=== PATIENT | male | born 1940 | race Caucasian/White ===

== ENCOUNTER 2019-09-03 19:40 | Inpatient (IN) | payer OTHER ==
[~2019-09-03] VITALS: Ht 177.8 cm; Wt 106.7 kg
[2019-09-03 19:20] VITALS: BP 124/66
--- NOTE | 2019-09-03 19:30 | NUR ---
Patient arrived at the end of day shift from [facility]. Patient interviewed by RN. Patient appears confused and is alert and oriented to person and knows whom the president is. Patient signed consents although the signatures are difficult to make out. Patient is pleasant and cooperative. Patient has a difficult time remembering. Patient states that he has been depressed of lately. Patient also states that he needs help with his memory. Patient denies hi/si. Patient states that he has suffered no abuse at home. Patient states that he is and that his luis is Restorationist. Patient states that it hurts/walker when he urinates. Patients urine is almost an orange color. Patient can ambulate on his own but his gait is unsteady and he stated that he has fell in the past but does not remember when. Patient meets criteria for a falls risk per falls score. Patient states that he has diabetes and htn. Patient also states that he had dentures but they broke and he has not had them fixed yet. This could affect dietary choices. Patients overall affect is blunted. Patient is medication adherent and takes medications whole with thin fluids. Patients assessment shows clear breath sounds diminished in the bases, bowel sounds hypoactive, and s1 s2 heard but heart beat is irregular. PMH shows afib and a pacemaker. We will continue to monitor per hospital protocol.
[2019-09-03] MEDS ORDERED: BUPROPION XL150 MG PO (19:58)
[2019-09-03] MEDS ORDERED: CIPRO500 M1 PO (19:59)
[2019-09-03] MEDS ORDERED: DIGOXIN125 MCG PO (20:00)
[2019-09-03] MEDS ORDERED: ARICEPT10 M1 PO (20:00)
[2019-09-03] MEDS ORDERED: LEXAPRO20 MG PO (20:01)
[2019-09-03] MEDS ORDERED: PROSCAR 5MG TABL5 M1 PO (20:01)
[2019-09-03] MEDS ORDERED: TOPROL XL100 MG PO (20:02)
[2019-09-03] MEDS ORDERED: FOLIC ACID1 MG PO (20:02)
[2019-09-03] MEDS ORDERED: PHENAZOPYRIDIN100 M1 PO (20:03)
[2019-09-03] MEDS ORDERED: OMEPRAZOLE40 MG PO (20:03)
[2019-09-03] MEDS ORDERED: XARELTO20 MG PO (20:04)
[2019-09-03] MEDS ORDERED: SPIRONOLACTONE50 MG PO (20:05)
[2019-09-03] MEDS ORDERED: FLOMAX0.4 MG PO (20:06)
[2019-09-04 06:38] VITALS: BP 105/60
[2019-09-04 08:00] VITALS: BP 105/60
--- NOTE | 2019-09-04 08:45 | NUR ---
Assumed care 0700. Waiting in dayroom for breakfast. Hands/arms bilateral with tremors. Said he has had them since grade school. Denies having a pacemaker. Oriented to name. Seen by KAMILLE Mccabe and Dr. Nielsen and [facility]. Denied c/o pain. Self feeding with tray set up-food cut up, etc.
--- NOTE | 2019-09-04 15:54 | EKG ---
[facility] [place] [address] ELECTROCARDIOGRAM REPORT Name: NAOMI URIOSTEGUI Room #: [facility] [place] ADM IN M.R.#: [id number] Admission: 09/03/19 Attend Phys: Antony Nielsen DO Discharge: Date of : 44 Report #: [id number] THIS REPORT FOR: cc: SOCORRO - Jesenia family physician/PCP SOCORRO - Jesenia family physician/PCP Chadwick Perez MD [facility] ~ THIS REPORT FOR: //name// [facility] Test Date: 2019-09-04 Test Time: 11:12:51 Pat Name: NOAMI URIOSTEGUI Department: Room: [facility] Gender: M Force Variation Equipment Tender: ANDREA : 1940 Requested By: Antony Nielsen Order Number: [id number] MD: Chadwick Perez Measurements Intervals [place] Rate: 128 P: [place]: QRS: -19 QRSD: 151 T: -88 QT: 318 QTc: 464 Interpretive Statements Atrial fibrillation Right bundle branch block Repol abnrm suggests ischemia, diffuse leads Baseline wander in lead(s) V2 No previous ECG available for comparison Electronically Signed On 09-04-2019 15:54:14 CDT by Chadwick Perez [email or web address] <ELECTRONICALLY SIGNED> By: Chadwick Perez MD, FAC 09/04/19 1554 1112 1112 Chadwick Perez MD, FAC /EPI
--- NOTE | 2019-09-04 16:24 | NUR ---
SW met with pt at length and discussed the d/c plans. Pt would like to live in an AL with memory care. He is not happy in his relationship. Pt stated that his sons could be helpful in decision making. Pt states he has the resources to live in an AL. Anika completed the intake assessment and TP. This included DR Nielsen in the meeting to discuss the concerns about going home.
--- NOTE | 2019-09-04 18:00 | NUR ---
Orthostatic BP's done by this nurse approximately 1130: lying 134/80, radial p=64, pulse ox p=72, O2=96%, sitting ME=221/80, radial p=60, pulse ox p=56, standing AN=269/50, pulse ox p=116, unable to get radial pulse or apical pulse. Note Dr. Nielsen also tried to get apical pulse with no success. Orthostatic VS from left arm reported to KAMILLE Mccabe who was to relay them to Dr. Phillips. Dr. Nielsen aware that VS given to KAMILLE Mccabe. Patient med compliant. Pt. has constant upper extremity tremors. He has been cooperative. At times he walks away from his walker. He had an EKG and spoke with the Trucking Contractor. Family called to get baseline of assessments with Dr. Nielsen to call them back. Urine is bright orange. He takes his pills whole 1-2 at a time. Denies SI/HI/AH/VH.
[2019-09-04 20:03] VITALS: BP 130/64
[2019-09-05 06:03] LABS: ABSOLUTE NEUTROPHILS 3.6 thou/uL (1.4-8.2); BASOPHILS 0.8 % (0.0-2.0); EOSINOPHILS 1.6 % (0.0-3.0); HEMATOCRIT 33.4 % (42.0-52.0); HEMOGLOBIN 11.3 gm/dL (14.0-18.0); LYMPHOCYTES 17.1 % (24.0-44.0); MCH 31.2 pg (26.0-34.0); MCHC 33.7 g/dL (28.0-37.0); MCV 92.5 fL (80.0-100.0); MONOCYTES 7.6 % (1.0-8.0); PLATELET COUNT 129 thou/uL (150-400); POLYS 72.9 % (36.0-66.0); RBC 3.61 mil/uL (4.50-6.00); RDW 17.1 % (10.5-14.5); WBC 4.9 thou/uL (4.0-11.0)
[2019-09-05 06:30] LABS: ALBUMIN 2.6 g/dL (3.4-5.0); CALCIUM 8.6 mg/dL (8.5-10.1); CREATININE 1.8 mg/dL (0.7-1.3); MAGNESIUM 1.5 mg/dL (1.8-2.4); POTASSIUM 4.3 mmol/L (3.5-5.1); TOTAL BILIRUBIN 0.9 mg/dL (0.2-1.0); TOTAL PROTEIN 5.8 g/dL (6.4-8.2)
[2019-09-05 07:35] VITALS: BP 100/60
--- NOTE | 2019-09-05 11:09 | NUR ---
pT WAS IN DAY ROOM WHEN I CAME ON DUTY THIS AM. PT.ATE MOST OF BREAKFAST THIS AM. MEDICATIONS WERE TAKES IN PUDDING WITH NO PROBLEMS. ON ASSESSMENT , LUNGS CLEAR X2, PEDAL PULSE EQUAL, BOWEL SOUNDS FAINT. PT OOK NAP AFTER AM GROUP MEETING. STAFF TO ENCOURAGE FLUIDS AND OBSERVE PT.
[2019-09-05 18:19] VITALS: BP 100/60
--- NOTE | 2019-09-05 19:24 | NUR ---
Care of patient assumed at 1915. Patient is layin gin bed. Calm and pleasant upon approach. States he stays in his room as much as possible due to the chaotic milieu increasinghis anxiety. A/O x 2. Denies pain. Denies SI/HI. Stated goal is to work on walking more. HS muffled with a gallop - A Fib audible. LS CTA but diminished. BS active x 4. Compliant with HS meds.
[2019-09-05 20:05] VITALS: BP 129/65
[2019-09-06 09:05] VITALS: BP 105/65
--- NOTE | 2019-09-06 16:05 | NUR ---
PATIENT PLEASANT AND ALERT TO CONVERSATION. FORGETFUL AND ADMITS TO IT. STRUGGLES TO COMPLETE THOUGHT PROCESSES WHEN TALKING AND BECOMES FRUSTRATED. PATIENT STATED HAD LONGCONVERSATION WITH AND IT WENT WELL. CLAIMS HAS BEEN FRICTION IN THERE RELATIONSHIP BUT HAVE AGREED TO ASSISTED LIVING NOW. PATIENT CALM AND COMPLIANT WITH MEDICATIONS. TALKED ABOUT HIS SONS AND ONE RESIDING IN [place]. VERY SOCIAL WITH STAFF AND PEERS. DENIES S/I OR H/I CLAIMS HAPPY HE HAVE RECONSILED WITH . EAGER TO MOVE INTO FACILITY WHERE HE HAS LESS RESPONSIBILITY. STATES HAS BECOME HARDER TO KEEP A HOUSE HE GREW OLDER. PATIENT MAKES NEEDS KNOWN - AMBULATES WITH WALKER - STATED HAD GOOD NIGHT SLEEP. SPENT ENTIRE DAY IN [place] - REFUSED AFTERNOON GROUP PARTICIPATION THOUGH.
--- NOTE | 2019-09-06 19:27 | NUR ---
Care of patient assumed at 1915. Patient is laying in bed resting. Calm and cooperative upon approach. Tremor still present BUE. A/O x 2. Reports feeling "good" today. States he is trying to stay positive about moving to assisted living. HS, LS, BS normal. Denies pain. Denies SI/HI. Compliant with HS meds. Is sleeping shortly after med pass.
[2019-09-06 19:45] VITALS: BP 141/83
[2019-09-07 06:47] LABS: ALBUMIN 2.5 g/dL (3.4-5.0); CALCIUM 8.5 mg/dL (8.5-10.1); CREATININE 1.5 mg/dL (0.7-1.3); POTASSIUM 4.3 mmol/L (3.5-5.1)
[2019-09-07 07:48] VITALS: BP 107/61
--- NOTE | 2019-09-07 08:33 | NUR ---
PT SITTING IN DINING ROOM. PT TOOK MEDS WITHOUT ANY ISSUES. PT DENIES ANY PAIN. PT UP WITH WALKER. HAS SLIGHT TREMORS TO HANDS. PT ABLE TO FEED SELF.
[2019-09-07 09:00] VITALS: BP 107/61
--- NOTE | 2019-09-07 16:10 | NUR ---
Pt was invited to Sw but refused because he wanted to sleep
--- NOTE | 2019-09-07 19:27 | NUR ---
Care of patient assumed at 1915. Patientis laying quietly in bed. Pleasant and cooperative. A/O x 2. Disoriented to time and place. Denies pain. Denies SI/HI. States he would like to speak with the doctor about discharge planning. After speaking with Dr Beltran, patient is bright and cheerful. Compliant with HS meds and retires to bed immediately after. Up to toilet several times through the night, ambulating the short distance without assistance.
[2019-09-07 19:43] VITALS: BP 141/85
[2019-09-08 08:00] VITALS: BP 94/67
[2019-09-08 08:37] VITALS: BP 94/67
--- NOTE | 2019-09-08 08:45 | NUR ---
PT ALERT AND FORGETFUL. PT DENIES ANY PAIN. PT USING WALKER TO AMBULATE. PT GAIT STEADY WITH WALKER. PT DENIES ANY BURNING WITH VOIDING. PT TAKING MEDS WITHOUT ANY ISSUES. DID CALL AND WONDER ABOUT IF HE NEEDS AL OR MEMORY CARE. SHE IS AFRAID WE WILL DISCHARGE HIM WITHOUT HIM BEING PLACED.
--- NOTE | 2019-09-08 15:15 | NUR ---
Anika faxedd the OA paperwork to [employer] [phone]. Confirmation recieved
--- NOTE | 2019-09-08 17:57 | NUR ---
PT HAS HAD A GOOD DAY TODAY. PT USING WALKER TO AMBULATE. PT SOMETIMES SETS WALKER ASIDE IN ROOM TO USE BATHROOM. PT NEEDS REMINDED TO WHERE HIS ROOM IS AT TIMES. PT TAKES MEDS WHOLE. PT DENIES ANY BURNING WHEN VOIDING. PT HAS ATTENDED GROUP TODAY.
[2019-09-08 20:11] VITALS: BP 128/94
--- NOTE | 2019-09-08 22:57 | NUR ---
Care assumed of patient at 1915: Patient seated on bed at start of shift. Patient ambulating without walker. Provided education and re-direction on using walker at all times when out of bed. Needed re-education several times this evening. Alert and oriented to person only. Pleasantly confused. Calm and cooperative. Patient polite, social, joking appropriately. Denies pain or discomfort. Denies SI/HI/AH/VH. Denies anxiety and depression. Patient took HS medication whole without difficulty. Declined HS snack. Provided supervision when using the bathroom. Patient smiling and interacting well with staff and peers. Patient did not fixate on discharge plan this evening. Goal directed stating "They are finding me a place to go to". Patient had difficulty falling to sleep this evening but was able to fall asleep recently and is resting quietly at this time.
[2019-09-09 07:34] VITALS: BP 137/79
--- NOTE | 2019-09-09 09:32 | NUR ---
Assumed care 0700. No offered complaints. Participated in AM Yoga group. Has hand and arm bilateral tremmors. Ate breakfast well-self feeding after tray was set up.
--- NOTE | 2019-09-09 18:13 | NUR ---
Does not remember what is told to him even one minute. Late in shift he inquired about the airplane and shopping in the area. Informed him when he would be discharged his family could take him shopping. Reoriented to being in the hospital. When in his room he cannot remember to use the call shaffer or even wait a few minutes for staff to return. He stands up. Pt. was showered and shaved though shaving was not a very good job due to the equipment available. He eats well, self feeds. Denies SI/HI, AH/VH though verse writer does not think he comprehends exactly what is being asked.
[2019-09-09 19:58] VITALS: BP 112/79
[2019-09-09 21:30] VITALS: BP 112/79
--- NOTE | 2019-09-10 00:53 | NUR ---
Assumed care of patient this pm shift. Patient is pleasantly confused, alert and oriented to self. Patients affect is blunted. Patient is medication adherent and takes pills whole with thin fluids. Patient uses a walker to ambulate and is considered a falls risk. Patient is wearing a yellow shirt and socks. Patients assessment shows no signs of acute distress. Patient denies pain. Patient denies hi/si. Patient breath sounds are clear, diminished in the bases, heart tones s1 s2 are present, and the heart rate is irregular. Patient has active bowel sounds and states that he is having regular bowel movements. Patient often needs direction to find his room. We will continue to monitor per hospital policy.
[2019-09-10 11:43] LABS: CALCIUM 8.8 mg/dL (8.5-10.1); CREATININE 1.7 mg/dL (0.7-1.3); POTASSIUM 4.4 mmol/L (3.5-5.1)
--- NOTE | 2019-09-10 13:02 | NUR ---
Alert and orientated to person, place but not to time, situation. Calm and cooperative, compliant with meds. Took whole with H2O. Denies SI/HI. Quiet most of the morning, participating in group and sitting with peers in day room. Denies SI/HI. Breath sounds clear t/o. Irregular HR auscultated. Color pink with brisk capillary refill and palpable pulses. +2 edema per lower extremities, dmitri hose placed. Independent with voiding. Active bowel sounds over large, soft, rounded abdomen. Eating meals independently. Dr. Benavides notified of HR, here examining pt. BMP drawn per order.
[2019-09-10 13:12] VITALS: BP 142/53
--- NOTE | 2019-09-10 14:37 | NUR ---
SANJUANA spoke with Ailin, Pt's , via phone call. Ailin stated she had spoken with [facility] and requested information be sent. She also asked for information to be sent to [facility] and [facility]. Ailin stated that they will be private pay. Ailin was confused if Pt needed AL or memory care. SANJUANA informed that the recommendation was assisted living with memory care. Sanjuana also informed Ailin that the Pt would like to return home however it has been explained to the Pt that would be a safety issue. Ailin agreed with this and stated she has told the Pt the same information. Sanjuana also set up a family meeting per Dr. Morris request for 09/11/2019 @ 2pm. SANJUANA sent referals to [facility], [facility] and [facility]. SANJUANA team will follow up.
[2019-09-10 19:50] VITALS: BP 139/90
--- NOTE | 2019-09-10 22:54 | NUR ---
Pt was in his room on his bed at time of assessment. Pt oriented to self. Knows he's in "[facility]" but unable to identify name of hospital. Pt had some tremors to upper extremities. Pt denies pain. Pt denies anxiety and/or depression. Pt denies SI/HI/AH/VH. Pt had edema to BLE. AZALEA hose in place to BLE at time of assessment. AZALEA hose was taken off prior to bed time. Pt took meds whole. Fall precaution in place. Pt is sleeping off and on so far. Will continue to monitor. Pt takes digoxin @ HS. No dig level obtained this hospital stay as baseline. Will mention during report in the morning.
[2019-09-11 07:41] VITALS: BP 109/59
--- NOTE | 2019-09-11 10:12 | NUR ---
Nutrition: Assessed for early weekend LOS. Here w/ worsening dementia, visual hallucinations, family unable to care for pt at home. SW now seeking placement into memory care. Family meeting planned for today. Pt A&O to self only, thus not seen for interview. EMR reviewed thoroughly. Pt eats meals independently and is showing excellent, stable appetite. Eats almost 100% of every single meal since admit; 99% meal average per the last 19 meals from 09/03 - 09/09. Noted to have 2+ edema to LE per nursing and dmitri renee placed 09/09. Also note pt on spironolactone diuretic. Has active bowel sounds and on scheduled bowel regimen w/ docusate Na. Also receives folic acid supplementation. Pt is low nutrition risk, no added nutrition interventions indicated.
[2019-09-11 13:46] VITALS: BP 109/59
--- NOTE | 2019-09-11 14:00 | NUR ---
PATIENT WAS IN DAYROOM SITTING WHEN CARE ASSUMED. PATIENT IS ALERT, AND ORIENTED X 1-2, ABLE TO VOICED NEED AT TIMES. PATIENT AMBULATES WITH ASSIST OF ROLLER WALKER, GAIT UNSTEADY, VISIBLE TREMORS NOTED TO [place] UPPER EXTREMITIES. DIGOXIN LEVEL COMPLETE, WITH RESULT OF 1.6. PATIENT DENIES SUICIDAL/HOMICIDAL IDEATION, HE DENIES DEPRESSION/ANXIETY. PATIENT DENIES AUDITORY/VISUAL HALLUCINATION, DENIES HAVING PHYSICAL PAIN. AFFECT IS FLAT/BLUNTED. PATIENT TOOK ALL MEDICATION WHOLE WITHOUT DIFFICULTY, HE IS EATING MEALS, AND DRINKING FLUID WELL. PATIENT CURRENTLY IN BED RESTING, NO SIGN OF ACUTE DISTRESS NOTED AT THIS TIME WILL MONITOR FOR SAFETY.
--- NOTE | 2019-09-11 16:04 | NUR ---
SW had meeting with Dr. Morris, Pt, and Pt's , Bela. The reason for the meeting was to discuss the Pt treatment and discharge plans. The Pt was stating that he wanted to go home and work out his marriage. The Pt was under the impression that his marriage was in trouble because he was not going home after his stay on the [facility]. SW was able to explain to the Pt that he would still be and his family, including his would be able to visit with him at the assisted living facility. SW explained to Pt that the move is due to safety reasons and to help alliviate the stress of caregigiving on his . SW educated that this would allow them more quality time. Bela also confirmed to the Pt their marriage was not ending. Pt seemed to perk up when questions about placment, visits, and his marriage were answered. Pt did state, " I feel less depressed since being here". Pt continues to deny SI/HI. When reminded by his Pt remembered that he spoke to his about assisted living and was agreeable to going.
--- NOTE | 2019-09-12 04:18 | NUR ---
Assumed care of pt @ 1900. Pt calm et cooperative this shift. Took medications whole without difficulty. Unable to assess ambulation as pt isolated in room in bed for entire shift. VSWNL. Health assessment with no abnormalities noted at present time. Denies SI/HI at present time but unsure if pt was completely understanding the dialogue et questions that were asked of him. Currently resting in bed with eyes closed. Will continue to monitor per protocol.
[2019-09-12 06:28] LABS: CALCIUM 8.4 mg/dL (8.5-10.1); CREATININE 1.4 mg/dL (0.7-1.3); POTASSIUM 4.1 mmol/L (3.5-5.1)
[2019-09-12 08:45] VITALS: BP 121/65
[2019-09-12 09:12] VITALS: BP 121/65
--- NOTE | 2019-09-12 09:19 | NUR ---
PT SITTING IN DINING ROOM AFTER EATING BREAKFAST WITH EYES CLOSED. PT TOOK MEDS WITHOUT ANY ISSUES. PT USING WALKER TO AMBULATE. PT ORIENTED TO SELF ONLY. PT THOUGHT MONTH WAS APRIL. PT RT ANKLE MORE SWOLLEN THAN LEFT. PULSES +1 BILATERALY PEDAL. PT STEADY ON FEET.
--- NOTE | 2019-09-12 13:22 | NUR ---
Anika recieved a phone call from Leesa at [facility], . Leesa informed that [facility] will accept the Pt. Leesa requested a TB test and a Covid test results for the Pt prior to admissions. [facility] is willing to take Pt 09/16/2019. [facility] will wants to set up an assessment with Pt via phone of karen marc Pt. [facility] will call ANIKA to schedule a time for the assessment.
--- NOTE | 2019-09-12 16:08 | NUR ---
PT RESTING AT THIS TIME.
[2019-09-12 18:49] VITALS: BP 124/58
[2019-09-12 21:55] VITALS: BP 136/80
--- NOTE | 2019-09-13 01:28 | NUR ---
ASSUMED CARE OF PATIENT AT APPROXIMATELY 0015, PATIENT IS RESTLESS IN BED AT TIMES AND OPENS EYES TO A PERSONS ENTRANCE INTO THE ROOM. HE DOES ACKNOWLEDGE STAFFS PRESENCE BUT RETURNS WITH EYES CLOSED. HE IS PLEASANT DURING CONVERSATION, AMONG OTHER ROUNDS HE DOES NOT APPEAR TO BE IN DISTRESS. NURSING WILL MAINTAIN Q12 CHECKS TO ENSURE SAFETY AT ALL TIMES.
[2019-09-13 07:43] VITALS: BP 141/84
--- NOTE | 2019-09-13 08:30 | NUR ---
PT UP IN DINING ROOM. PT DENIES ANY PAIN. PT USES WALKER TO AMBULATE. PT COMPLIENT WITH MEDS. PT AMY. DIET. PT LAST BM 09/09. PT LUNGS CLEAR. PT VERY APPREACIATED WITH HELP.
[2019-09-13 09:00] VITALS: BP 141/84
[2019-09-13 20:35] VITALS: BP 129/95
[2019-09-13 22:25] VITALS: BP 129/95
--- NOTE | 2019-09-14 03:27 | NUR ---
Assumed care of patient this pm shift. Patient was in his room resting at shift change. Patient is alert and oriented x1-2. Patient knows his name and who the president is but did not know where he was at or why he was here. Patient denies pain. Patient denies hi/si. Patient is a falls risk and ambulates with a walker. Patient is wearing the yellow shirt and socks. Patient was wearing dmitri hose and they were removed before bedtime. Patient takes medications whole with thin fluids. Patients assessment shows no signs of acute distress. Patient is very pleasant and cooperative. We will continue to monitor patient per hospital protocol.
[2019-09-14 08:52] VITALS: BP 127/77
--- NOTE | 2019-09-14 12:54 | NUR ---
SANJUANA spoke with Leesa with [facility]. Leesa stated she is faxing over a physician statement she needs completed for pt. She also stated pt needs level 1 TB test and COVID test. She said she needs results before they take pt. SANJUANA and Leesa arranged d/c for 09/15 @ 1400. SANJUANA provided an update to Dr. Nielsen. SW team will continue to follow pt during his stay on this unit.
--- NOTE | 2019-09-14 16:25 | NUR ---
DELAYED VERBAL RESPONSES-AND FLAT AFFECT-APPEARS UNKEMPT DESPITE SEVERAL CLOTHING CHANGES-. IS COOPERATIVE WITH REQUESTS FROM STAFF . MILDLY SOMULENT-APPETITE GOOD. GAIT SLOW BUT STEADY WITH USE OF ROLLER WALKER.. ORIENTED TO NAME ONLY. NO PSYCHOSIS NOTED OR REPORTED
[2019-09-14 19:41] VITALS: BP 115/75
[2019-09-14 21:46] VITALS: BP 115/75
--- NOTE | 2019-09-14 21:56 | NUR ---
Assumed care on 09/14/19 @ 19:15, in bed at shift change. Awakens to voice, cooperative with assessment A&Ox2, oriented to person and knows president's name. Not oriented to date or to reason he is hospitalized and the name of the hospita. HRRR, Lungs CTA, ABD N x 4 Q. Denies pain. Does not remember if he had a BM today, nursing reports that he had a BM today. Negative Covid19 test. In bed at this time, eyes clsoed, respirations even and unlabored. Will continue to monitor q 12 minutes for paitne safety.
[2019-09-14 23:54] VITALS: BP 115/75
--- NOTE | 2019-09-15 00:16 | NUR ---
ASSUMED CARE ON 09/14/19 @ 19:15, IN BED AWAKENS TO VOICE, A&OX3 TO PERSON, TIME AND SITUATION. NOT ORIENTED TO PRESIDENT.
--- NOTE | 2019-09-15 06:32 | NUR ---
Assummed pt's care at about midnight. Pt slept well this shift. Assissted with toileting as needed. Pt took morning protonix with no complaints. Fall precaution in place. Will continue to monitor.
[2019-09-15 07:42] VITALS: BP 119/70
--- NOTE | 2019-09-15 12:19 | NUR ---
CALM AND COOPERATIVE SO FAR THIS SHIFT. GIVEN SHOWER,SHAMPOO AND SHAVE THIS AM AND WAS APPRECIATIVE OF THIS. LOWER EXTREMITIES WITH APPROX. 2 PLUS NON-PITTING PEDAL EDEMA-AZALEA HOSE APPLIED PER ORDER. USING ROLLER WALKER FOR SAFTEY-GAIT SLOW BUT STEADY. DENIES C/O PAIN/DISCOMFORT.ORIENTED TO PERSON/HOSPITAL BUT NO TO DATE-WILL OCCASSIONALLY NEED ASSISTANCE IN FINDING ROOM/DINING ROOM-TOILETS SELF BUT REQUIRES ASSIST WITH PERINEAL CARE. NO PSYCHOSIS,AGITATION,ACUTE ANXIETY NOTED OR REPORTED. DENIES SI/SH/HI
--- NOTE | 2019-09-15 12:22 | NUR ---
SANJUANA faxed to Leesa with [facility] pt's negative COVID-19 test and his step 1 TB test. SANJUANA also contacted Leesa and informed her SW faxed to her a form that had to be signed by Dr. Nielsen for pt's insurance; the facility also needs to fill a section out. SANJUANA provided this update via phone to Leesa and confirmed tomorrow's discharge. SANJUANA spoke with pt's Ailin and provided an update. SANJUANA team will continue to follow pt during his stay on this unit.
--- NOTE | 2019-09-15 16:17 | NUR ---
Pt was invited but he was sleeping
[2019-09-15 18:22] LABS: HEMATOCRIT 34.2 % (42.0-52.0); HEMOGLOBIN 11.6 gm/dL (14.0-18.0); MCH 32.1 pg (26.0-34.0); MCV 94.3 fL (80.0-100.0); RBC 3.63 mil/uL (4.50-6.00); RDW 17.3 % (10.5-14.5); WBC 5.6 thou/uL (4.0-11.0)
[2019-09-15 18:30] LABS: CALCIUM 8.5 mg/dL (8.5-10.1); CREATININE 1.5 mg/dL (0.7-1.3); MAGNESIUM 1.6 mg/dL (1.8-2.4)
[2019-09-15 19:23] VITALS: BP 137/83
--- NOTE | 2019-09-16 05:07 | NUR ---
Pt oriented to self. Confused. Fporgetful. Pt was in his room at time of assessment. Pt was pleasant and cooperative showed appreciation at time of assessment. Tremors present. Pt had Beto hose on at time of assessment. Pt denies pain, anxiety and/or depression. Pt took meds whole. Pt currently in bed sleeping. Fall precautions in place. Will continue to monitor.
[2019-09-16 06:04] LABS: HEMATOCRIT 33.3 % (42.0-52.0); HEMOGLOBIN 11.3 gm/dL (14.0-18.0); MCH 32.1 pg (26.0-34.0); MCHC 33.9 g/dL (28.0-37.0); MCV 94.7 fL (80.0-100.0); RBC 3.52 mil/uL (4.50-6.00); RDW 17.7 % (10.5-14.5); WBC 6.1 thou/uL (4.0-11.0)
[2019-09-16 06:21] LABS: CALCIUM 8.4 mg/dL (8.5-10.1); CREATININE 1.6 mg/dL (0.7-1.3); MAGNESIUM 1.6 mg/dL (1.8-2.4); POTASSIUM 3.7 mmol/L (3.5-5.1)
[2019-09-16 07:49] VITALS: BP 124/79
[2019-09-16] MEDS ORDERED: XARELTO20 MG PO (12:55)
[2019-09-16] MEDS ORDERED: DIGOXIN125 MCG PO (12:56)
[2019-09-16] MEDS ORDERED: FLOMAX0.4 MG PO (12:56)
[2019-09-16] MEDS ORDERED: METOPROLOL SUCC25 M1 PO (12:56)
[2019-09-16] MEDS ORDERED: PROPRANOLOL 1010 MG PO (12:57)
[2019-09-16] MEDS ORDERED: SPIRONOLACTONE50 MG PO (12:57)
[2019-09-16] MEDS ORDERED: BUPROPION XL150 MG PO (12:58)
[2019-09-16] MEDS ORDERED: HALOPERIDOL 1 MG1 MG PO (12:58)
[2019-09-16] MEDS ORDERED: LEXAPRO20 MG PO (12:58)
[2019-09-16] MEDS ORDERED: OMEPRAZOLE40 MG PO (12:59)
[2019-09-16] MEDS ORDERED: COLACE 100 MG100 MG PO (12:59)
[2019-09-16] MEDS ORDERED: PROSCAR 5MG TABL5 M1 PO (13:00)
[2019-09-16 13:49] VITALS: BP 124/79
--- NOTE | 2019-09-16 13:55 | NUR ---
SANJUANA D/C NOTE SANJUANA faxed discharge documents to [facility] at . SANJUANA will submit docs along with comfirmation page to pt's file. No other needs for SW team to address at this time.
--- NOTE | 2019-09-16 13:56 | NUR ---
PT. IS COOPERATIVE AND PLEASANT. HE HAS MEMORY LOSS. HE SMILES OFTEN AND VERBALIZES APPRECIATION FOR THE STAFF AND THE CARE HE HAS RECEIVED WHILE HE WAS HERE. HE IS TO GO TO [facility] IN TODAY. HE IS ACCEPTING OF THIS. HE IS EATING WELL AT MEALS AND TAKES HIS MEDICATIONS WITHOUT PROBLEMS NOTED.
== END 2019-09-16 14:30 | DRG 884 ==
LOC: SBH
PROVIDERS: Hospitalist; Internal Medicine; Nurse Practitioner; ADMIT Psychiatry & Neurology Psychiatry; ATTEND Psychiatry & Neurology Psychiatry
DX: F01.51 Vascular dementia, unspecified severity, with behavioral disturbance (principal); E43 Unspecified severe protein-calorie malnutrition; N17.9 Acute kidney failure, unspecified; N18.9 Chronic kidney disease, unspecified; N39.0 Urinary tract infection, site not specified; I50.42 Chronic combined systolic (congestive) and diastolic (congestive) heart failure; I13.0 Hypertensive heart and chronic kidney disease with heart failure and stage 1 through stage 4 chronic kidney disease, or unspecified chronic kidney disease; F32.9 Major depressive disorder, single episode, unspecified; I48.91 Unspecified atrial fibrillation; I25.5 Ischemic cardiomyopathy; I25.10 Atherosclerotic heart disease of native coronary artery without angina pectoris; E78.5 Hyperlipidemia, unspecified; E11.22 Type 2 diabetes mellitus with diabetic chronic kidney disease; N40.0 Benign prostatic hyperplasia without lower urinary tract symptoms; F29 Unspecified psychosis not due to a substance or known physiological condition; F41.9 Anxiety disorder, unspecified; Z66 Do not resuscitate; Z95.0 Presence of cardiac pacemaker; Z79.01 Long term (current) use of anticoagulants; Z88.8 Allergy status to other drugs, medicaments and biological substances; Z87.891 Personal history of nicotine dependence; Z95.5 Presence of coronary angioplasty implant and graft; Z98.42 Cataract extraction status, left eye; Z98.41 Cataract extraction status, right eye; Z90.49 Acquired absence of other specified parts of digestive tract; Z79.899 Other long term (current) drug therapy; Z68.33 Body mass index [BMI] 33.0-33.9, adult; Z03.818 Encounter for observation for suspected exposure to other biological agents ruled out
CPT/HCPCS: 10880